=== PATIENT | female | born 1985 | race Asian ===

== ENCOUNTER 2017-02-27 10:05 | Outpatient (CLI) | payer OTHER ==
--- NOTE | 2017-02-27 16:00 | RAD ---
RIGHT ELBOW FOUR VIEWS 02/27/17 There appears to be a subtle amount of joint fluid. On one view only, there is hint of a small cortic al irregularity at the junction of the radial neck and head. I cannot exclude a very minimal fracture here. All other views appeared completely normal. It might be worth another elbow series in a week o r so. IMPRESSION: No major fracture seen, but there is a subtle abnormality that may represent a very tiny fracture at the junction of the radial neck and head. Code T POS: HOME
--- NOTE | 2017-02-27 16:09 | RAD ---
RIGHT FOREARM TWO VIEWS 02/27/17 No major fracture of the radius and ulna are seen. However, just as on the elbow films, on one view t here is a little cortical irregularity at the junction of the radial neck and head, as well as a sugg estion of a very small joint effusion. Seeing this on a second set of images makes me a bit more susp icious that a very subtle fracture is present here. IMPRESSION: Some suspicion of fracture, albeit subtle, at the junction of the radial head and neck. Code T POS: HOME
== END 2017-02-27 10:06 | disposition home or self-care (01) ==
LOC: BURRAD 10:05
PROVIDERS: ATTEND Family Medicine
DX: M79.631 Pain in right forearm (principal); R93.7 Abnormal findings on diagnostic imaging of other parts of musculoskeletal system